=== PATIENT | male | born 1950 | race Caucasian/White ===

== ENCOUNTER 2023-11-09 10:04 | Day surgery (SDC) | payer MEDICARE, OTHER, SELFPAY ==
[2023-11-09] VITALS (10 sets, daily range): BP systolic 114–178; BP diastolic 64–90; PULSE 60–88; RESP 12–22; TEMP 36.6–37; O2SAT 93–98; BMI 35.5
--- NOTE | 2023-11-09 10:20 | ED_ITS ---
HPI - General Adult General Chief complaint: Skin/Abscess/Foreign Body Stated complaint: FOOD CAUGHT IN THROAT Time Seen by Provider: 11/09/23 10:15 Source: patient Mode of arrival: walk-in History of Present Illness HPI narrative: 73-year-old male presents for food stuck in esophagus. He was eating pot roast last night about 6:30 and feels like something got stuck and he hasn't been able to really drink or eat anything since then. Typically when he drinks something it comes back up. This has never happened before and it's been continuous and he's never had upper endoscopy. Related Data Home Medications Medication Instructions Recorded Confirmed No Known Home Medications 11/09/23 11/09/23 Allergies Allergy/AdvReac Type Severity Reaction Status Date / Time Penicillins Allergy Severe Verified 11/09/23 10:17 Review of Systems ROS Narrative A ten point review of systems is negative except as noted above. Exam Narrative Exam Narrative: Nurses note and vital signs reviewed and patient is not hypoxic. General: The patient appears well and in no apparent distress. Patient is resting comfortably on cart. Skin: Warm, dry, no pallor noted. There is no rash noted. Head: Normocephalic, atraumatic Eye: Normal conjunctiva, no drainage Ears, Nose, Mouth, and Throat: oral mucosa is moist. Nares patent. Cardiovascular: Regular Rate and Rhythm Respiratory: Patient is in no distress, no accessory muscle use, lungs are clear to auscultation, no wheezing, rales or rhonchi Back: non-tender GI: soft and nontender, nondistended Musculoskeletal: The patient has no evidence of calf tenderness, no pitting edema, symmetrical pulses noted bilaterally Neurological: A&O, normal speech Psychiatric: Cooperative Constitutional Vital Signs, click to edit/add: Last Vital Signs Temp 98.6 F 11/09/23 10:12 Pulse 88 11/09/23 10:12 Resp 18 11/09/23 10:12 BP 178/90 H 11/09/23 10:12 Pulse Ox 97 11/09/23 10:12 O2 Del Method Room Air 11/09/23 10:12 Course Vital Signs Vital signs: Vital Signs Temperature 98.6 F 11/09/23 10:12 Pulse Rate 88 11/09/23 10:12 Respiratory Rate 18 11/09/23 10:12 Blood Pressure 178/90 H 11/09/23 10:12 Pulse Oximetry 97 11/09/23 10:12 Oxygen Delivery Method Room Air 11/09/23 10:12 Temperature 98.6 F 11/09/23 10:12 Pulse Rate 88 11/09/23 10:12 Respiratory Rate 18 11/09/23 10:12 Blood Pressure 178/90 H 11/09/23 10:12 Pulse Oximetry 97 11/09/23 10:12 Oxygen Delivery Method Room Air 11/09/23 10:12 Medical Decision Making MDM Narrative Medical decision making narrative: The patient was given Reglan, nitroglycerin, and glucagon twice without change in his condition. I've spoken to Dr. Thomas and the patient will be taken to or for endoscopy. Findings are discussed with the patient. Differential Diagnosis Differential Diagnosis: esophageal food bolus, esophageal stricture Lab Data Lab results reviewed: Yes I reviewed the patient's lab results Labs: Lab Results 11/09/23 Range/Units 10:25 WBC 7.2 (4.0-11.0) 10^3/uL RBC 4.54 L (4.70-6.10) 10^6/uL Hgb 14.4 (14.0-18.0) g/dL Hct 43.5 (42.0-54.0) % MCV 95.8 H (80.0-94.0) fL MCH 31.7 (25.9-34.0) pg MCHC 33.1 (29.9-35.2) g/dL RDW 12.8 (11.0-15.0) % Plt Count 205 (150-450) 10^3/uL MPV 9.7 (9.5-13.5) fL Neut % (Auto) 70.9 (43.0-75.0) % Lymph % (Auto) 16.8 L (20.5-60.0) % [place] % (Auto) 10.4 (1.7-12.0) % Eos % (Auto) 1.1 (0.9-7.0) % Baso % (Auto) 0.7 (0.2-2.0) % Neut # (Auto) 5.1 (1.4-6.5) 10^3/uL Lymph # (Auto) 1.2 (1.2-3.8) 10^3/uL [place] # (Auto) 0.8 (0.3-0.8) 10^3/uL Eos # (Auto) 0.1 (0.0-0.7) 10^3/uL Baso # (Auto) 0.1 (0.0-0.1) 10^3/uL Abs Immat Gran (auto) 0.01 (0.00-0.03) 10^3/uL Imm/Tot Granulo (auto) 0.1 (0.0-0.5) % Sodium 143 (136-145) mmol/L Potassium 3.4 L (3.5-5.1) mmol/L Chloride 105 (98-107) mmol/L Carbon Dioxide 26.6 (21.0-32.0) mmol/L Anion Gap 14.8 BUN 17.0 (7.0-18.0) mg/dL Creatinine 1.13 (0.70-1.30) mg/dL Est GFR ( Amer) >60 (>=60) Est GFR (Non-Af Amer) >60 (>=60) BUN/Creatinine Ratio 15.0 Glucose 116 H (74-106) mg/dL Calcium 8.9 (8.5-10.1) mg/dL Discharge Plan Discharge Chief Complaint: Skin/Abscess/Foreign Body Clinical Impression: Esophageal foreign body Patient Disposition: Admitted as Observation Time of Disposition Decision: 12:36 Condition: Good
[2023-11-09] MEDS: NITROGLYCERIN 0.4 MG BOTTLE SL ×2 (10:34→11:53)
[2023-11-09] MEDS: GLUCAGON 1 MG/ML VIAL IV ×2 (10:34→11:53)
[2023-11-09] MEDS: METOCLOPRAMIDE HCL 10 MG/2 ML VIAL IVP ×2 (10:34→11:54)
[2023-11-09 10:37] LABS: Basophils Absolute Auto 0.1 10^3/uL (0.0-0.1); Basophils Percent Auto 0.7 % (0.2-2.0); Eosinophils Absolute Auto 0.1 10^3/uL (0.0-0.7); Eosinophils Percent Auto 1.1 % (0.9-7.0); Hematocrit 43.5 % (42.0-54.0); Hemoglobin 14.4 g/dL (14.0-18.0); Immature Granulocytes Abs Auto 0.01 10^3/uL (0.00-0.03); Immature Granulocytes Pct Auto 0.1 % (0.0-0.5); Lymphocytes Absolute Auto 1.2 10^3/uL (1.2-3.8); Lymphocytes Percent Auto 16.8 % (20.5-60.0); Mean Corpuscular HGB Conc 33.1 g/dL (29.9-35.2); Mean Corpuscular Hemoglobin 31.7 pg (25.9-34.0); Mean Corpuscular Volume 95.8 fL (80.0-94.0); Mean Platelet Volume 9.7 fL (9.5-13.5); Monocytes Absolute Auto 0.8 10^3/uL (0.3-0.8); Monocytes Percent Auto 10.4 % (1.7-12.0); Neutrophils Absolute Auto 5.1 10^3/uL (1.4-6.5); Neutrophils Percent Auto 70.9 % (43.0-75.0); Platelet Count 205 10^3/uL (150-450); Red Blood Count 4.54 10^6/uL (4.70-6.10); Red Cell Distribution Width 12.8 % (11.0-15.0); White Blood Count 7.2 10^3/uL (4.0-11.0)
[2023-11-09 10:46] LABS: Anion Gap 14.8; Calcium 8.9 mg/dL (8.5-10.1); Carbon Dioxide 26.6 mmol/L (21.0-32.0); Chloride 105 mmol/L (98-107); Estimated GFR (African America >60 (>=60); Estimated GFR (Non-African Ame >60 (>=60); Glucose 116 mg/dL (74-106); Potassium 3.4 mmol/L (3.5-5.1); Sodium 143 mmol/L (136-145)
--- NOTE | 2023-11-09 12:44 | PM.HP ---
H&P: HPI History of Present Illness Chief complaint: FOOD CAUGHT IN THROAT Narrative: 73 y/o male presented to ED today after eating roast and feeling like it is stuck as of 6 pm last night. He cannot swallow his secretions and has never had this happen.he drinks alcohol daily at least 2-3 drinks and has been doing so for many years. He has not seen his nurse practitioner Miguelina Berry in two years. She is located in [place]. He has a history of hypertension but has not been treating it. He understands that his risk of a heart attack or stroke without treatment of his hypertension. He denies tobacco use. He was last hospitalized in for broken bones. Review of Systems ROS Status of ROS 10 or more systems reviewed and unremarkable except as noted in history and below [facility] Surgical History (Updated 11/09/23 @ 13:27 by Ratna Romero) History of surgery on arm ?Z98.890 - Other specified postprocedural states (ICD-10) History of surgery on lower extremity ?Z98.890 - Other specified postprocedural states (ICD-10) History of colonoscopy ?Z98.890 - Other specified postprocedural states (ICD-10) Social History (Updated 11/09/23 @ 13:30 by Ratna Romero) Within the past year, how often did you have a drink containing alcohol: 4 or more times a week Within the past year, how many standard drinks containing alcohol did you have on a typical day: 3 or 4 Smoking status: Never smoker Non-prescribed substance use: denies use Meds Home Medications and Allergies Home Medications Medication Instructions Recorded Confirmed Type No Known Home Medications 11/09/23 11/09/23 History Allergies Allergy/AdvReac Type Severity Reaction Status Date / Time Penicillins Allergy Severe Rash Verified 11/09/23 13:24 Exam Constitutional Vital Signs, click to edit/add: Last Vital Signs Temp 98.6 F 11/09/23 10:12 Pulse 88 11/09/23 10:12 Resp 18 11/09/23 10:12 BP 178/90 H 11/09/23 10:12 Pulse Ox 97 11/09/23 10:12 O2 Del Method Room Air 11/09/23 10:12 Documenting provider has reviewed patient's vital signs: yes Common normals: no apparent distress, average body habitus, oriented x3, healthy appearing, alert and well nourished Respiratory Common normals: clear to auscultation bilaterally Cardio Common normals: regular rate and regular rhythm GI Common normals: Normal to inspection, nondistended, normoactive bowel sounds present, soft to palpation, non-tender, no hepatosplenomegaly and no masses Neuro Common normals: oriented x3 and CN's II-XII intact bilaterally Results Labs Labs: Short CBC 11/09/23 Range/Units 10:25 WBC 7.2 (4.0-11.0) 10^3/uL Hgb 14.4 (14.0-18.0) g/dL Hct 43.5 (42.0-54.0) % Plt Count 205 (150-450) 10^3/uL BMP 11/09/23 10:25 Sodium 143 Potassium 3.4 L Chloride 105 Carbon Dioxide 26.6 BUN 17.0 Creatinine 1.13 Glucose 116 H Calcium 8.9 Assessment and Plan Assessment and Plan (1) Food bolus obstruction of intestine: (2) Alcohol abuse: (3) Hypertension: Qualifiers: Hypertension type: unspecified Qualified Code(s): I10 - Essential (primary) hypertension Plan EGD with biopsy and removal of food bolus or possible dilatation of esophagus. Risk, benefits, and alternatives to endoscopy may include perforation or bleeding.I had recommended patient see his PCP for control of his hypertension due to increased risk of stroke heart attack or . He voiced understanding he was also told to cut back on his alcohol use.
--- NOTE | 2023-11-09 13:08 | ECG_ITS ---
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
[2023-11-09] MEDS: LACTATED RINGER'S SOLUTION 1,000 ML 50 ML IV (13:17)
--- NOTE | 2023-11-09 13:42 | PM.GSPRC ---
Date of procedure: 11/09/23 Indications for Procedure: food bolus esophagus Pre-op diagnosis: food bolus esophagus Post-op diagnosis: other (food bolus esophagus/erosive esophagitis/gastritis) Procedure: EGDwith biopsy antrum and distal esophagus Findings: food bolus erosive esophagitis Severe gastritis Anesthesia: GRETEL Surgeon: Rei Thomas Procedure Summary: Patient was taken to the operating suite placed in the supine position and given general anesthetic by the plastics heat welder. Timeout was taken and the Olympus EGD scope was advanced under direct visualization into the esophagus where a food bolus was encountered in the distal esophagus and gently pushed into the stomach. After entering the stomach he was noted to have moderate to severe gastritis for which biopsies were taken and hemostasis maintained. The scope was traversed through the pylorus and the 1st and 2nd 3rd and 4th portions of the duodenum which were normal. The scope was returned to the stomach retroflexed on itself looking the GE junction which was normal and then to the distal esophagus where he had erosive esophagitis possibly Salazar's noted.multiple biopsies were taken and hemostasis maintained. There were some small superficial esophageal varices grade 1. Placing will be placed on omeprazole 40 mg by mouth twice a day and asked to refrain from drinking alcohol and we will call with biopsy results. He should follow-up with his PCP for treatment of his hypertension which is uncontrolled. Estimated blood loss (mL): 1 Specimens: esophageal biopsy and antral biopsies Complications: No Condition: stable Disposition: PACU
[2023-11-10 15:50] LABS: H Pylori Tissue, Urease Positive
== END 2023-11-09 15:25 | disposition home or self-care (01) ==
LOC: ER 12:53 → OR 13:22 → SURGOUT 13:30
PROVIDERS: Emergency Provider Emergency Medicine; PCP Nurse Practitioner Family; Visit Provider Surgery
PROC: (CPT 43239; principal; 2023-11-09 13:30)
DX: T18.128A Food in esophagus causing other injury, initial encounter (principal); K29.50 Unspecified chronic gastritis without bleeding; K21.00 Gastro-esophageal reflux disease with esophagitis, without bleeding; K22.10 Ulcer of esophagus without bleeding; I10 Essential (primary) hypertension; F10.10 Alcohol abuse, uncomplicated; I85.00 Esophageal varices without bleeding
CPT/HCPCS: 43239; 43247; 36415; 80048; 85025; 87077; 88305; 93005; 96374; 96375; 96376; 99285; 99999; J0330; J1100; J1610; J2405; J2704; J2765